=== PATIENT | male | born 1980 | race Caucasian/White ===

== ENCOUNTER 2023-04-16 03:20 | Emergency (ER) | payer OTHER ==
[~2023-04-16] VITALS: Ht 180.3 cm; Wt 95.2 kg
[2023-04-16 04:24] VITALS: BP 156/98
== END 2023-04-16 06:09 | disposition home or self-care (01) ==
LOC: ER 03:20
DX: L23.7 Allergic contact dermatitis due to plants, except food (principal)
CPT/HCPCS: 96372; 99283-25; J1100